=== PATIENT | male | born 1970 | race Caucasian/White ===

== ENCOUNTER 2019-04-28 15:53 | Emergency (ER) | payer MEDICAID, SELFPAY ==
[2019-04-28 15:55] VITALS: BP 117/66; PULSE 99; RESP 18; TEMP 36.2; O2SAT 96; BMI 23.6
[2019-04-28] MEDS: Clindamycin HCl 150 MG Capsule 450 MG PO (16:21)
[2019-04-28] MEDS: HYDROcodone Bitartrate/Apap 5/325 Tablet PO (16:21)
--- NOTE | 2019-04-28 16:55 | ED.DCSUM_ITS ---
History of Present Illness Chief Complaint: Lower Extremity Injury Detail of Chief Complaint: Left knee pain and swelling Informant: Patient Onset: Weeks Current Severity: Moderate Maximum Severity: Moderate Narrative: Patient states that 2 weeks ago he developed pain and swelling over the anterior left knee. He went to his PCPs office to be evaluated, had syncope in the office and was sent to the emergency room at [facility]. Work-up for syncope was unremarkable. Patient was felt to have bursitis and was discharged with doxycycline, prednisone, and [place]. Patient states the swelling improved but never completely resolved. He woke this morning with recurrent left knee pain and anterior swelling. He denies any recent injury. No fever or chills. No prior surgeries to the knee. Past Medical History - Allergies and Home Meds Allergies/Adverse Reactions: Allergies No Known Allergies Allergy (Verified 04/28/19 15:58) Primary Care Physician: Ki Uriostegui MD [Primary Care Provider] - Marciano Perez MD [STAFF PHYSICIAN] - As Needed Prior records reviewed: Yes Past Medical History: - - Reviewed Lives: Spouse/ Significant Other Smoking Status: Never smoker Review of Systems General: Denies: Chills, Fever Eyes: Denies: Visual changes - bilaterally ENT: Denies: Bilateral ear pain Cardiovascular: Denies: Chest pain Respiratory: Denies: Dyspnea Gastrointestinal: Reports: Vomiting - Vomited x1 yesterday. Denies: Abdominal pain Genitourinary: Denies: Dysuria Musculoskeletal: Reports: Extremity Pain Skin: Denies: Rash Neurological: Denies: Headache Hematologic: Denies: Easy bruising Allergy: Denies: Uticaria Physical Exam Vital Signs/Narrative: Vital Signs Temp Pulse Resp BP Pulse Ox 04/28/19 15:55 97.1 F L 99 18 117/66 96 Inital Vital Signs reviewed: Yes General: Well nourished, Well developed Head: Normocephalic ENT: Moist mucous membranes Neck: Supple Cardiovascular: Regular rate, Regular rhythm Respiratory: No distress, CTA bilaterally Abdomen: Soft, Nontender Back: Nontender Extremities: - - Patient has evidence of left knee prepatellar bursitis with edema and mild warmth. No sign of cellulitis. No tenderness along the joint line. Strong distal pulses are noted. Skin: Normal color Neurological: Alert, Oriented x3 Psychological: Normal affect Diagnostic/Tx/Re-eval - Medical Decision Making Patient was given a dose of [place] and clindamycin here. Left knee was cleansed and 12 cc of bursal fluid was drained. Fluid will be sent for testing. Patient will be given prescriptions for clindamycin and [place]. I will write him a prescription for prednisone, he will not fill it until I am able to see the results of his fluid and I will call him later tonight with this. Addendum: I was notified by nursing staff that lab called with his Gram stain which revealed no organisms. I asked nursing to call the patient and advised him that he can go ahead and fill the prednisone. ED Disposition - Plan for ED Patient: Disposition: Home or Assisted Living Diagnosis: Prepatellar bursitis Instructions: Bursitis Prescriptions: Clindamycin [Cleocin] 450 mg PO TID #30 cap Prescription Printed Hydrocodone Bitart/Apap 5-325 [[place] 5MG-325MG] 1 tab PO Q6H PRN PRN 3 Days #14 tab PRN Reason: Pain Prescription Printed Prednisone 10 mg PO UD #33 tab Prescription Printed Referrals: Ki Uriostegui MD [Primary Care Provider] - Marciano Perez MD [STAFF PHYSICIAN] - As Needed
[2019-04-28 17:09] LABS: AUTO B FLUID DILUENT BKGD CT WBC <0.1 RBC <0.01 (W<.1,R<.01); Appearance /Synovial Fluid Cloudy (CLEAR); Color / Synovial Fluid Red (Pale Yellow); Source / Synovial Fluid LEFT KNEE
[2019-04-28 17:22] LABS: RBC /Synovial Fluid 0.054 10^6/uL (0); Synovial Fld Mononuclear WBC % 47.4 %; Synovial Fld Polynuclear WBC # 0.278 10^3/uL; Synovial Fld Polynuclear WBC % 52.6 %
[2019-04-28 18:12] LABS: Synovial Fld Mononuclear WBC # 0.251 10^3/ul
[2019-04-28 18:13] LABS: Body Fluid QC Type(s) BF1Q; Lymph 33 %; Monocyte /Synovial Fluid 10 %; Neutrophil 57 % (0-25)
--- NOTE | 2019-04-28 18:18 | ED.RN ---
Called pt to inform he was to get steroid rx filled. Pt verbalized message and agreed.
[2019-04-29 12:31] LABS: Pathologist Comment Reviewed
[2019-04-30 12:19] LABS: GLUCOSE, SYNOVIAL FLUID 86 mg/dL (.); PROTEIN, SYNOVIAL FLUID 4.8 g/dL (.)
== END 2019-04-28 17:36 | disposition home or self-care (01) ==
PROVIDERS: Emergency Provider Emergency Medicine; Family Provider Family Medicine; PCP Family Medicine
DX: M70.42 Prepatellar bursitis, left knee (principal); Y93.9 Activity, unspecified
CPT/HCPCS: 20610; 82945; 84157; 87070; 87075; 87205; 89050; 89051; 99283